=== PATIENT | female | born 1960 | race African-American/Black ===

== ENCOUNTER 2022-01-08 15:35 | Emergency (ER) | payer BC, OTHER ==
[~2022-01-08] VITALS: Ht 177.8 cm; Wt 100.0 kg
[2022-01-08] MEDS ORDERED: FAMOTIDINE 20MG/2ML VIAL IV STA (15:43)
[2022-01-08] MEDS ORDERED: METHYLPREDNISOLONE SOD SUCC 125 MG/2 ML VIAL IV ONE (15:45)
[2022-01-08] MEDS ORDERED: DIPHENHYDRAMINE 50MG/ML VIAL IV ONE (15:45)
[2022-01-08] MEDS ORDERED: SODIUM CHLORIDE 0.9% 1,000 ML IV ONE (15:45)
[2022-01-08 16:28] LABS: BASOPHILS % 1.1 % (0.0-2.0); EOSINOPHILS % 2.1 % (0.0-5.0); HEMATOCRIT. 44.2 % (36.0-48.0); HEMOGLOBIN. 14.2 g/dL (12.0-16.0); LYMPHOCYTES % 47.7 % (20.0-50.0); MEAN CORPUSCULAR HEMOGLOBIN 25.8 pg (28.0-32.0); MEAN CORPUSCULAR VOLUME 80.3 fL (81.0-99.0); MEAN PLATELET VOLUME 9.2 fl (7.4-10.4); MONOCYTES % 4.3 % (2.0-8.0); NEUTROPHILS % 44.8 % (40.0-76.0); PLATELET 273 x1000/uL (130-400); RED CELL DISTRIBUTION WIDTH 15.5 % (11.6-14.6)
[2022-01-08] MEDS ORDERED: METHYLPREDNISOLONE SOD SUCC 125 MG/2 ML VIAL IV NR (16:30)
[2022-01-08] MEDS ORDERED: DIPHENHYDRAMINE 50MG/ML VIAL IV NR (16:30)
[2022-01-08] MEDS ORDERED: FAMOTIDINE 20MG/2ML VIAL IV NR (16:30)
[2022-01-08 16:33] LABS: CHLORIDE 108 mEq/L (98-107)
[2022-01-08 17:33] VITALS: BP 176/97
== END 2022-01-08 19:58 | disposition left against medical advice (07) ==
LOC: ER 15:35 → CANBEDREQ 20:42
DX: T78.3XXA Angioneurotic edema, initial encounter (principal); K14.8 Other diseases of tongue; T46.4X5A Adverse effect of angiotensin-converting-enzyme inhibitors, initial encounter; I10 Essential (primary) hypertension; Y92.018 Other place in single-family (private) house as the place of occurrence of the external cause; Z20.822 Contact with and (suspected) exposure to COVID-19
CPT/HCPCS: 36415; 80048; 85025; 87426; 96361; 96374; 96375; 99291; C9803; J1200; J2930; J3490; J7030